=== PATIENT | male | born 1970 | race Caucasian/White ===

== ENCOUNTER 2017-01-23 03:52 | Emergency (ER) | payer OTHER ==
[~2017-01-23] VITALS: Ht 188 cm; Wt 90.7 kg
[2017-01-23] MEDS ORDERED: METAL LOCK LOOP XX ONE (04:27)
[2017-01-23 05:16] LABS: BASO % 0.8 % (0.0-1.0); EOS # 0.1 K/mm3 (0.0-0.50); EOS % 1.4 % (0.0-3.0); LARGE UNSTAINED CELL # 0.2 K/mm3 (0.0-0.4); LARGE UNSTAINED CELL % 2.7 % (0.0-4.0); LYMPH # 2.5 K/mm3 (1.5-4.5); LYMPH % 34.9 % (24.0-44.0); MEAN CORPUSCULAR HEMOGLOBIN 31.4 pg (27.0-33.0); MEAN CORPUSCULAR HGB CONC 34.2 g/dl (32.0-36.5); MEAN CORPUSCULAR VOLUME 91.9 fl (80.0-96.0); MONO # 0.4 K/mm3 (0.0-0.8); MONO % 5.5 % (0.0-5.0); NEUTROPHILS # 3.8 K/mm3 (1.8-7.7); NEUTROPHILS % 54.7 % (36.0-66.0); PLATELET COUNT, AUTOMATED 317 k/mm3 (150-450); RED CELL DISTRIBUTION WIDTH 12.2 % (11.5-14.5)
[2017-01-23 05:32] LABS: ANION GAP 8 MEQ/L (8-16); BLOOD UREA NITROGEN 17 MG/DL (7-18); CALCIUM LEVEL 9.2 MG/DL (8.5-10.1); CARBON DIOXIDE LEVEL 31 MEQ/L (21-32); CHLORIDE LEVEL 102 MEQ/L (98-107); CREATININE FOR GFR 0.81 MG/DL (0.70-1.30); GLOMERULAR FILTRATION RATE > 60.0 (>60); GLUCOSE, FASTING 102 MG/DL (70-105); MAGNESIUM LEVEL 2.2 MG/DL (1.8-2.4); POTASSIUM SERUM 3.8 MEQ/L (3.5-5.1); SODIUM LEVEL 141 MEQ/L (136-145)
[2017-01-23 06:38] VITALS: BP 148/86
--- NOTE | 2017-01-23 07:48 | REP ---
Clinical: Chest pain . Comparison: 07/07/2009 . Technique: PA and lateral. Findings: The mediastinum and cardiac silhouette are normal. The lung hinds are clear and without acute consolidation, effusion, or pneumothorax. The skeletal structures are intact and normal. Impression: 1. No acute cardiopulmonary process. Signed by Anurag Oscar MD 01/23/2017 07:39 A
--- NOTE | 2017-01-23 09:42 | ECGEPIP ---
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
== END 2017-01-23 06:59 | disposition home or self-care (01) ==
LOC: M ED 04:51
DX: R00.2 Palpitations (principal)

== ENCOUNTER → 2018-12-24 | Outpatient (REF) | payer BC | LOC: M LAB REF 14:13 | PROVIDERS: ATTEND Nurse Practitioner Adult Health | DX: R35.0 Frequency of micturition (principal) ==

== ENCOUNTER 2022-10-14 08:12 | Emergency (ER) | payer BC ==
[~2022-10-14] VITALS: Ht 188 cm; Wt 93.0 kg
[2022-10-14] MEDS ORDERED: NS 1,000 ML IV ONE (09:15)
[2022-10-14 10:15] LABS: BASO % 0.2 % (0.0-1.0); HEMATOCRIT 44.1 % (42.0-52.0); HEMOGLOBIN 14.6 g/dl (13.5-17.5); LYMPH # 0.8 10^3/uL (1.5-5.0); LYMPH % 5.2 % (24.0-44.0); MEAN CORPUSCULAR HEMOGLOBIN 30.8 pg (27.0-33.0); MEAN CORPUSCULAR HGB CONC 33.1 g/dl (32.0-36.5); MONO # 0.5 10^3/uL (0.0-0.8); MONO % 3.2 % (2.0-8.0); NEUTROPHILS # 13.7 10^3/uL (1.5-8.5); NEUTROPHILS % 90.9 % (36.0-66.0); PLATELET COUNT, AUTOMATED 318 10^3/uL (150-450); RED BLOOD COUNT 4.74 10^6/uL (4.30-6.10); WHITE BLOOD COUNT 15.1 10^3/uL (4.0-10.0)
[2022-10-14 10:48] LABS: LIPASE 28 U/L (12-53)
[2022-10-14 10:51] LABS: BILIRUBIN,DIRECT 0.1 MG/DL (<0.4)
[2022-10-14 10:53] LABS: ALBUMIN 3.7 G/DL (3.2-5.2); ALKALINE PHOSPHATASE 70 U/L (46-116); ALT/SGPT 27 U/L (7.0-40); AST/SGOT 18 U/L (<34); BILIRUBIN,TOTAL 0.5 MG/DL (0.3-1.2); BLOOD UREA NITROGEN 19 MG/DL (9-23); CALCIUM LEVEL 9.5 MG/DL (8.5-10.1); CARBON DIOXIDE LEVEL 22 MMOL/L (20-31); CHLORIDE LEVEL 105 MMOL/L (98-107); CREATININE FOR GFR 0.79 MG/DL (0.70-1.30); GLOMERULAR FILTRATION RATE > 60.0 (>56); GLUCOSE, FASTING 119 MG/DL (60-100); POTASSIUM SERUM 4.3 MMOL/L (3.5-5.1); SODIUM LEVEL 139 MMOL/L (136-145); TOTAL PROTEIN 7.1 G/DL (5.7-8.2)
[2022-10-14] MEDS ORDERED: FLOM0.4C39 PO (11:42)
[2022-10-14] MEDS ORDERED: KETO10TAB PO (11:42)
[2022-10-14 11:57] VITALS: BP 116/71
== END 2022-10-14 12:02 | disposition home or self-care (01) ==
LOC: M ED 08:12
DX: N21.0 Calculus in bladder (principal); N13.4 Hydroureter; N23 Unspecified renal colic; Z87.442 Personal history of urinary calculi; R00.2 Palpitations; Z87.891 Personal history of nicotine dependence; Z82.49 Family history of ischemic heart disease and other diseases of the circulatory system

== ENCOUNTER → 2024-11-25 | Outpatient (REF) | payer BC ==
[~2024-11-25] MED LIST: FLOM0.4C39 PO; KETO10TAB PO
[2024-11-25 17:36] LABS: RSV AMPLIFICATION NEGATIVE (NEGATIVE)
== END ==
LOC: M LAB REF 16:09
PROVIDERS: ATTEND Nurse Practitioner Adult Health
DX: J02.9 Acute pharyngitis, unspecified (principal)

== ENCOUNTER → 2025-03-04 | Outpatient (REF) | payer BC ==
[~2025-03-04] MED LIST changes: -FLOM0.4C39 PO; +TAMS-18 PO
[2025-03-04 18:36] LABS: RSV AMPLIFICATION NEGATIVE (NEGATIVE)
== END ==
LOC: M LAB REF 17:04
PROVIDERS: ATTEND Nurse Practitioner Adult Health
DX: J06.9 Acute upper respiratory infection, unspecified (principal)

== ENCOUNTER 2025-06-20 12:24 | Day surgery (SDC) | payer BC ==
[~2025-06-20] VITALS: Ht 188 cm; Wt 92.0 kg
[~2025-06-20 12:24] MED LIST changes: +LIDOCAINE 2% 100 MG/5 ML SDV (FOR ANES.) As Ordered ONE
[2025-06-20 14:40] VITALS: TEMP 97.6
[2025-06-20 14:59] VITALS: BP 110/80; O2SAT 96
== END 2025-06-20 15:04 | disposition home or self-care (01) ==
LOC: M OPP 12:24
PROVIDERS: ATTEND Surgery
DX: Z12.11 Encounter for screening for malignant neoplasm of colon (principal); K63.5 Polyp of colon; K64.4 Residual hemorrhoidal skin tags; K57.30 Diverticulosis of large intestine without perforation or abscess without bleeding